=== PATIENT | female | born 1970 | race American Indian/Alaskan Native ===

== ENCOUNTER 2018-12-19 10:19 | Emergency (ER) | payer OTHER, BC ==
[2018-12-19] MEDS ORDERED: NORCO 10/325 PO ONE (13:02)
[2018-12-19] MEDS ORDERED: ZOFRAN ODT PO ONE (13:02)
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
[2018-12-19 15:52] VITALS: BP 161/95
== END 2018-12-19 15:48 | disposition home or self-care (01) ==
LOC: ED 10:19
DX: S09.90XA Unspecified injury of head, initial encounter (principal); S39.92XA Unspecified injury of lower back, initial encounter; Z88.0 Allergy status to penicillin; Z79.899 Other long term (current) drug therapy; V49.9XXA Car occupant (driver) (passenger) injured in unspecified traffic accident, initial encounter; Y93.89 Activity, other specified; Y92.410 Unspecified street and highway as the place of occurrence of the external cause; Y99.8 Other external cause status
CPT/HCPCS: 70450; 72131; Q0162